=== PATIENT | female | born 1955 | race Caucasian/White ===

== ENCOUNTER 2021-12-19 07:00 | Day surgery (SDC) | payer MEDICARE, BC ==
[~2021-12-19 07:00] MED LIST: Lactated Ringers 1,000 ML IV SCH; Lidocaine 1%/Sod Bicarbonate in NS 8.4% 1 ML Syringe IDERM PRN; Sodium Chloride 0.9% 10 ML Syringe FLUSH PRN; Sodium Chloride 0.9% 10 ML Syringe FLUSH SCH
[2021-12-19] MEDS ORDERED: Lidocaine 1% 4 ML ONE (07:54)
[2021-12-19] MEDS ORDERED: Propofol 200 MG/20 ML SDV ONE ×2 (07:54→08:24)
[2021-12-19] MEDS ORDERED: Simethicone 80 MG Tab.Chew PO ONE (09:18)
== END 2021-12-19 10:04 | disposition home or self-care (01) ==
LOC: JD.SDS 07:00
PROVIDERS: ATTEND Surgery
DX: D12.0 Benign neoplasm of cecum (principal); D12.3 Benign neoplasm of transverse colon; K57.30 Diverticulosis of large intestine without perforation or abscess without bleeding; F41.0 Panic disorder [episodic paroxysmal anxiety]; E78.5 Hyperlipidemia, unspecified; E55.9 Vitamin D deficiency, unspecified; Z88.2 Allergy status to sulfonamides; Z88.8 Allergy status to other drugs, medicaments and biological substances; Z79.899 Other long term (current) drug therapy; Z87.891 Personal history of nicotine dependence
CPT/HCPCS: 45380; A9270; J2704; J7120; 00811; 88305

== ENCOUNTER 2022-02-07 06:59 | Day surgery (SDC) | payer MEDICARE, BC ==
[2022-02-07] MEDS ORDERED: Lactated Ringers 1,000 ML IV ONE (07:16)
[2022-02-07] MEDS ORDERED: Bupivacaine 0.5%/EPINEPHrine 1:200,000 50 ML MDV ONE (07:18)
[2022-02-07] MEDS ORDERED: Propofol 200 MG/20 ML SDV ONE (07:38)
[2022-02-07] MEDS ORDERED: Midazolam 1 MG/ML 2 ML SDV ONE (07:38)
[2022-02-07] MEDS ORDERED: Lidocaine 1% 5 ML VIAL ONE (07:39)
[2022-02-07] MEDS ORDERED: fentaNYL 250 MCG/5 ML SDV ONE (07:39)
[2022-02-07] MEDS ORDERED: Rocuronium 50 MG/5 ML Vial ONE (07:39)
[2022-02-07] MEDS ORDERED: Dexamethasone 4 MG/ML 5 ML MDV ONE (07:39)
[2022-02-07] MEDS ORDERED: diphenhydrAMINE 50 MG/ML SDV ONE (07:39)
[2022-02-07] MEDS ORDERED: Scopolamine 1.5 MG Transdermal Patch TOP ONE (07:40)
[2022-02-07] MEDS ORDERED: Neostigmine Methylsulfate 10 MG/10 ML MDV ONE (08:22)
[2022-02-07] MEDS ORDERED: Ondansetron 4 MG/2 ML SDV IVPUSH PRN (08:40)
[2022-02-07] MEDS ORDERED: fentaNYL 100 MCG/2 ML SDV IVPUSH PRN (08:40)
[2022-02-07] MEDS ORDERED: HYDROmorphone 0.5 MG/0.5 ML Syringe IVPUSH PRN (08:40)
[2022-02-07] MEDS ORDERED: oxyCODONE 5 MG Tab PO ONE (09:33)
== END 2022-02-07 11:30 | disposition home or self-care (01) ==
LOC: JD.SDS 06:59
PROVIDERS: ATTEND Surgery
DX: D12.1 Benign neoplasm of appendix (principal); K38.1 Appendicular concretions; N83.8 Other noninflammatory disorders of ovary, fallopian tube and broad ligament; F41.9 Anxiety disorder, unspecified; F32.A Depression, unspecified; E78.5 Hyperlipidemia, unspecified; E55.9 Vitamin D deficiency, unspecified; E11.9 Type 2 diabetes mellitus without complications; M85.859 Other specified disorders of bone density and structure, unspecified thigh; Z88.1 Allergy status to other antibiotic agents; Z88.8 Allergy status to other drugs, medicaments and biological substances; Z91.040 Latex allergy status; Z88.2 Allergy status to sulfonamides; Z98.890 Other specified postprocedural states; Z79.899 Other long term (current) drug therapy; Z87.891 Personal history of nicotine dependence
CPT/HCPCS: 44970; 88304; A9270; J0694; J1100; J1200; J2250; J2704; J2710; J3010; J3490; J7120; 00840

== ENCOUNTER 2023-01-19 12:29 | Emergency (ER) | payer OTHER, MEDICARE, BC ==
[2023-01-19] MEDS ORDERED: Sodium Chloride 0.9% 10 ML Syringe FLUSH PRN (13:22)
[2023-01-19] MEDS ORDERED: Iopamidol 612 MG/ML 100 ML Bottle IVPUSH ONE (13:22)
[2023-01-19] MEDS ORDERED: LORazepam 2 MG/ML SDV IVPUSH ONE (13:25)
[2023-01-19] MEDS ORDERED: Sodium Chloride 0.9% 100 ML IV SCH (13:30)
[2023-01-19 13:36] LABS: BASOPHILS ABSOLUTE AUTO 0.03 K/mm3 (0.01-0.08); BASOPHILS PERCENT AUTO 0.4 % (0.1-1.2); EOSINOPHILS ABSOLUTE AUTO 0.09 K/mm3 (0.04-0.36); EOSINOPHILS PERCENT AUTO 1.3 (0.7-5.8); HEMATOCRIT 40.9 % (34.1-44.9); HEMOGLOBIN 14.1 gm/dl (11.2-15.7); IMMATURE GRAN ABSOLUTE AUTO 0.01 K/mm3 (0.00-0.10); IMMATURE GRAN PERCENT AUTO 0.1 % (<=1.0); LYMPHOCYTES PERCENT AUTO 26.5 % (19.3-51.7); MEAN CORPUSCULAR HEMOGLOBIN 31.3 pg (25.6-32.2); MEAN CORPUSCULAR HGB CONC 34.5 g/dl (32.2-35.5); MEAN CORPUSCULAR VOLUME 90.9 fl (79.4-94.8); MEAN PLATELET VOLUME 11.4 fl (9.4-12.3); MONOCYTES ABSOLUTE AUTO 0.49 K/mm3 (0.24-0.36); MONOCYTES PERCENT AUTO 7.2 % (4.7-12.5); NEUTROPHILS ABSOLUTE AUTO 4.37 K/mm3 (1.56-6.13); NEUTROPHILS PERCENT AUTO 64.5 % (34.0-71.1); PLATELET COUNT,PLT 186 K/mm3 (182-369); WHITE BLOOD CELL COUNT,WBC 6.79 K/mm3 (3.98-10.04)
[2023-01-19 14:04] LABS: A/G RATIO 1.2 (1-2); ALBUMIN 4.3 g/dl (3.4-5.0); ANION GAP 18.4 (5-15); BILIRUBIN TOTAL 0.6 mg/dL (0.2-1.0); BUN/CREATININE RATIO 12.5 (14-18); CALCIUM 9.3 mg/dL (8.5-10.1); CREATININE 0.8 mg/dL (0.55-1.02); EST CRCL DRUG DOSING (CG) 54.71 mL/min; POTASSIUM,K 4.4 mEq/L (3.5-5.1); PROTEIN TOTAL,TP 7.9 g/dl (6.4-8.2)
== END 2023-01-19 17:07 | disposition home or self-care (01) ==
LOC: JD.ED 12:29
DX: S16.1XXA Strain of muscle, fascia and tendon at neck level, initial encounter (principal); R07.89 Other chest pain; Z88.2 Allergy status to sulfonamides; Z91.040 Latex allergy status; Z88.1 Allergy status to other antibiotic agents; Z88.8 Allergy status to other drugs, medicaments and biological substances; Z79.899 Other long term (current) drug therapy; V49.40XA Driver injured in collision with unspecified motor vehicles in traffic accident, initial encounter; Y92.410 Unspecified street and highway as the place of occurrence of the external cause
CPT/HCPCS: 36415; 71260; 72125; 74177; 80053; 84484; 85025; 93005; 96374; 99284; J2060; J3490; Q9967